=== PATIENT | male | born 1945 | race Caucasian/White ===

== ENCOUNTER 2017-06-29 16:05 | Outpatient (CLI) | payer MEDICARE, OTHER ==
--- NOTE | 2017-06-30 09:29 | XRAY Report ---
THREE VIEW RIGHT FOOT: 06/29/2017 CLINICAL INDICATION: Pain. FINDINGS: AP, lateral, oblique views of the right foot demonstrate osteoarthritis of the first metatarsophalangeal joint. There is no evidence of acute fracture or dislocation. No radiopaque foreign body is seen in the soft tissues. IMPRESSION: MILD OSTEOARTHRITIS. TD: 06/30/2017 09:20
== END 2017-06-29 16:06 | disposition home or self-care (01) ==
LOC: DI 16:05
PROVIDERS: ATTEND Family Medicine
DX: S90.111A Contusion of right great toe without damage to nail, initial encounter (principal); M19.071 Primary osteoarthritis, right ankle and foot

== ENCOUNTER 2018-09-01 09:29 | Outpatient (CLI) | payer MEDICARE, OTHER ==
--- NOTE | 2018-09-01 16:59 | Ultrasound Report ---
Reason: PAIN IN LEFT LOWER LEG, R/O ACHILLES TEAR Procedure Date: 09/01/2018 Accession Number: [id number] / [id number] Procedure: US - Ext Limited Non Vascular CPT Code: FULL RESULT: EXAM: LEFT UPPER EXTREMITY ULTRASOUND - LIMITED EXAM DATE: 09/01/2018 10:49 AM. CLINICAL HISTORY: Pain in left lower leg, rule out Achilles tear. COMPARISON: None. TECHNIQUE: Real-time scanning was performed with static images obtained. FINDINGS: Focused MSK ultrasound of the left Achilles region demonstrates a partial-thickness near complete tear of the Achilles tendon. IMPRESSION: High-grade partial thickness tear of the left Achilles tendon, near complete. [facility]
== END 2018-09-01 09:30 | disposition home or self-care (01) ==
LOC: DI 09:29
PROVIDERS: ATTEND Nurse Practitioner Family
DX: S86.012A Strain of left Achilles tendon, initial encounter (principal)
CPT/HCPCS: 76882

== ENCOUNTER 2018-09-01 10:49 | Emergency (ER) | payer MEDICARE, OTHER ==
[2018-09-01 11:03] VITALS: BP 173/78
--- NOTE | 2018-09-01 12:56 | ED Physician Documentation ---
PD HPI LOWER EXT INJURY - Stated complaint Stated Complaint: LT LEG INJURY - Chief complaint Chief Complaint: Ext Problem - History obtained from History obtained from: Patient - History of Present Illness PD HPI LOW EXT INJURY LOCATION: Left, Ankle, Other (heel) Type of injury: Other (fall from a ladder onto his foot) Where injury occurred: Work Timing - onset: Other (a few days ago) Timing - details: Abrupt onset Severity Comments: mild Worsened by: Moving. No: Palpating Associated symptoms: No: Weakness, Numbness, Tingling, Swelling Contributing factors: No: Anticoagulated, Prior ortho surgery, Prosthetic joint, Work related Similar symptoms before: Has not had sx before Recently seen: Clinic (diagnosed with achilles tendon tear and told to come to the ED for a walking boot) Review of Systems Ten Systems: 10 systems reviewed and negative Constitutional: denies: Fever Cardiac: reports: Reviewed and negative Respiratory: reports: Reviewed and negative GI: reports: Reviewed and negative Skin: reports: Reviewed and negative Musculoskeletal: reports: Joint pain, Joint swelling Neurologic: denies: Focal weakness, Numbness PD PAST MEDICAL HISTORY - Past Medical History Past Medical History: No - Present Medications Home Medications: Ambulatory Orders Medication Instructions Recorded Confirmed RX: Atorvastatin [Lipitor] 10 09/01/18 RX: Lisinopril 10 mg PO 09/01/18 - Allergies Allergies/Adverse Reactions: Allergies Allergy/AdvReac Type Severity Reaction Status Date / Time No Known Drug Allergies Allergy Verified 09/01/18 10:59 - Social History Does the pt smoke?: No Smoking Status: Never smoker PD ED PE NORMAL - Vitals Vital signs reviewed: Yes - General General: Alert and oriented X 3, No acute distress, Well developed/nourished - HEENT HEENT: Atraumatic - Neck Neck: Supple, no meningeal sign - Cardiac Cardiac: RRR - Respiratory Respiratory: No respiratory distress - Abdomen Abdomen: Non distended - Male Male : Deferred - Rectal Rectal: Deferred - Derm Derm: Normal color, Warm and dry - Extremities Extremities: No deformity - Neuro Neuro: Alert and oriented X 3 Eye Opening: Spontaneous Motor: Obeys Commands Verbal: Oriented GCS Score: 15 - Psych Psych: Normal mood, Normal affect Results - Vitals Vitals: Vital Signs - 24 hr 09/01/18 11:00 Temperature 36.4 C L Heart Rate 94 Respiratory 14 Rate Blood Pressure 173/78 H O2 Saturation 100 PD MEDICAL DECISION MAKING - ED course Complexity details: reviewed old records, considered differential, d/w patient ED course: 73 y/o F with known achilles tendon tear here for a walking boot. Tear confirmed on outside imaging. Pt stable for discharge with boot. Departure - Departure Disposition: 01 Home, Self Care Clinical Impression: Achilles rupture, left Condition: Stable Record reviewed to determine appropriate education?: Yes Instructions: Rupture Achilles Tendon Follow-Up: your, provider [Other] Discharge Date/Time: 09/01/18 13:06
== END 2018-09-01 13:06 | disposition home or self-care (01) ==
LOC: ED 10:49
DX: S86.012A Strain of left Achilles tendon, initial encounter (principal); W11.XXXA Fall on and from ladder, initial encounter; Y99.0 Civilian activity done for income or pay
CPT/HCPCS: 76882; 99282

== ENCOUNTER 2018-09-08 16:47 | Outpatient (CLI) | payer MEDICARE, OTHER ==
--- NOTE | 2018-09-09 02:08 | Ultrasound Report ---
Reason: STRAIN OF LEFT ACHILLES TENDON, INITIAL ENCOUNTER Procedure Date: 09/08/2018 Accession Number: [id number] / [id number] Procedure: US - Duplex Ext Veins Left CPT Code: FULL RESULT: EXAM: LEFT LOWER EXTREMITY VENOUS ULTRASOUND EXAM DATE: 09/08/2018 05:08 PM. CLINICAL HISTORY: Strain of left Achilles tendon, initial encounter. COMPARISON: None. TECHNIQUE: Real-time sonographic vascular imaging was performed by the commissioning manager through the lower extremity utilizing both color-flow and Doppler spectral analysis. Multiple support representative static images were saved for review. FINDINGS: Common Femoral Vein (CFV): Normal. CFV-GSV Junction: Normal. Profunda Femoral Vein (PFV): Normal. Femoral Vein (FV) Prox: Normal. Femoral Vein (FV) Mid: Normal. Femoral Vein (FV) Dist: Normal. Popliteal Vein: Normal. Posterior Tibial Veins: Limited visualization. Given the limitations, no thrombus identified. Peroneal Veins: Limited visualization. Given the limitations, no thrombus identified. Contralateral Side CFV: Normal. Other: Complex collection measuring 4.8 x 0.7 x 2.4 cm noted in the posteromedial left calf soft tissues. No internal vascularity is noted. IMPRESSION: 1. Suboptimal visualization of posterior tibial and peroneal veins. 2. Given the limitations, no evidence for deep venous thrombosis. 3. Left calf fluid collection most compatible with hematoma. [facility]
--- NOTE | 2018-09-12 17:29 | MRI Report ---
Reason: STRAIN OF LEFT ACHILLES TENDON, INITIAL ENCOUNTER Procedure Date: 09/08/2018 Accession Number: [id number] / [id number] Procedure: MRI - Ankle LT W/O CPT Code: FULL RESULT: EXAM: LEFT ANKLE/HINDFOOT MRI WITHOUT CONTRAST. EXAM DATE: 09/08/2018 06:50 PM. CLINICAL HISTORY: Strain of left achilles tendon, initial encounter. COMPARISON: ANKLE 3 VIEW LT 09/05/2018 2:36 PM. TECHNIQUE: Multiplanar, multisequence T1-weighted and fluid-sensitive sequences of the ankle/hindfoot without contrast. Other: None. FINDINGS: Bones: Small amounts of edematous change are seen at the anterior aspect of the talus near the talar neck and also anterior aspect of the distal tibial plafond. No fractures. Articular Cartilage: Unremarkable. Ligaments: The anterior and posterior tibiofibular, anterior and posterior talofibular, and calcaneofibular ligaments are intact. The deep and superficial deltoid and spring ligaments are intact. Anterior Tendons: The tibialis anterior, extensor hallucis longus, and extensor digitorum longus tendons are unremarkable. Medial Tendons: The tibialis posterior, flexor digitorum longus, and flexor hallucis longus tendons are unremarkable. Lateral Tendons: The peroneus brevis and longus are unremarkable. Achilles Tendon: Focal full-thickness tear of the Achilles tendon adjacent to the area marked with an MRI marker. About a 1.1 cm focal fluid-filled gap is present, swollen tendon ends are seen in this location. Tendon tear is located 4.9 cm superior to the calcaneal attachment. Series 501 image 14. Musculature: No edema or fatty atrophy. Other: Small tibiotalar joint effusion. Anterior tibiotalar joint capsule is indistinct and may be ruptured. The contents of the sinus tarsi and tarsal tunnel are unremarkable. No plantar fasciitis. There is a generous amount of surrounding soft tissue swelling and edema. IMPRESSION: 1. Focal full-thickness tear at the Achilles tendon adjacent to the area marked with an MRI marker, about a 1.1 cm focal fluid-filled gap. Tendon tear is located about 4.9 cm superior to the calcaneal attachment. Large amount of surrounding edema and swelling is present. 2. Tibiotalar joint effusion is present, anterior tibiotalar capsule is indistinct and may be ruptured. 3. Some edematous change seen at the talus and distal anterior tibia. No fractures. [facility]
== END 2018-09-08 16:48 | disposition home or self-care (01) ==
LOC: DI 16:47
PROVIDERS: ATTEND Orthopaedic Surgery Sports Medicine
DX: S86.012A Strain of left Achilles tendon, initial encounter (principal); M25.472 Effusion, left ankle